=== PATIENT | female | born 1990 | race Hispanic/Latino ===

== ENCOUNTER 2017-10-08 11:51 | Day surgery (SDC) | payer OTHER ==
[~2017-10-08 11:51] MED LIST: Dexamethasone 20 MG/5 ML VIAL ONE; Glycopyrrolate 0.2 MG/ML 5 ML SYRINGE ONE; Ketorolac Tromethamine 30 MG/ML VIAL ONE; Lidocaine 1% PF 5 ML VIAL ONE; Ondansetron HCl/PF 4 MG/2 ML Vial ONE; Propofol 200 MG/20 ML VIAL ONE; Succinylcholine Chloride 20 MG/ML 10 ml SYRINGE FS ONE
[2017-10-08] MEDS ORDERED: Bupivacaine/Epinephrine 0.25% 30 ML VIAL ONE (12:09)
[2017-10-08] MEDS ORDERED: Midazolam HCl 2 mg/2 ml Vial ONE (12:14)
[2017-10-08] MEDS ORDERED: Ondansetron HCl/PF 4 MG/2 ML Vial ONE ×2 (12:14→14:41)
[2017-10-08] MEDS ORDERED: Fentanyl 100 MCG/2 ML VIAL ONE ×2 (12:14→13:45)
[2017-10-08] MEDS ORDERED: cefOXitin 2 GM, Syringe 1 ML in Sterile Water 10 ML SLOW IVP SCH (12:30)
[2017-10-08] MEDS ORDERED: diphenhydrAMINE 50 MG/ML VIAL ONE (13:54)
--- NOTE | 2017-10-08 14:00 | OP ---
PREOPERATIVE DIAGNOSIS: Severe biliary colic. SURGEON: Robin Preciado M.D. PROCEDURE PERFORMED: Laparoscopic cholecystectomy. INDICATIONS: This is a 27-year-old female with 3-day history of severe right upper quadrant pain. S he went to the emergency room yesterday where ultrasound showed gallbladder polyps, sludge, normal li ayad function tests. She continued to hurt and started having vomiting. FINDINGS: There was some inflammation in the lower gallbladder. The cystic duct was not dilated. PROCEDURE IN DETAIL: After informed consent was obtained, the patient was taken to the operating [facility] and given general endotracheal anesthesia. She was placed in the supine position. Her abdomen was prepped and draped in the usual fashion. Local anesthesia infiltrated subcutaneously and deep. A s ubumbilical incision was performed, subcu divided sharply. The fascia grasped and two stay sutures o f 0 Vicryl placed to either side of midline. Midline was incised. Digital palpation revealed no loc al adhesions. A blunt 10-12 mm trocar inserted. Pneumoperitoneum was created to a pressure of 15 mm Hg. A 0-degree laparoscope inserted. Under direct vision, three 5 mm ports placed subcostally. The gallbladder grasped and advanced superiorly. There were adhesions to the gallbladder. These were t aken down utilizing electrocautery as well as blunt and sharp dissection. The peritoneum opened to d issect out the cystic duct and artery as well as critical view. The duct and artery were triply liga viviane with Hemoclips and divided. The gallbladder was removed from its fossa utilizing electrocautery, removed from the abdomen through the umbilical port. Hemostasis was assured. Trocars and retractor s removed. The fascia closed with interrupted 0 Vicryl suture. The skin closed with interrupted 4-0 Rapide. Dermabond applied. The patient tolerated the procedure well and transferred to recovery in good condition. Sponge and needle count verified correct x2.
--- NOTE | 2017-10-08 14:03 | HP ---
CHIEF COMPLAINT: Right upper quadrant abdominal pain. HISTORY OF PRESENT ILLNESS: The patient is a 27-year-old female with a 3-day history of progressive epigastric and right upper quadrant pain radiating to the back, associated with nausea and vomiting. She had a temperature of 100 degrees yesterday. She went to the emergency room in [place] where an ultrasound showed a gallbladder polyp and sludge. PAST MEDICAL HISTORY: Significant for otherwise being healthy. PAST SURGICAL HISTORY: She has had an appendectomy, tonsil and adenoidectomy. MEDICATIONS: None. ALLERGIES: No known drug allergies. SOCIAL HISTORY: She is . No tobacco. Rare alcohol. FAMILY HISTORY: Diabetes. PHYSICAL EXAMINATION: GENERAL: She is afebrile. A well-developed, well-nourished female. She is in pain. HEENT: No jaundice. LUNGS: Clear. HEART: Regular rate and rhythm. ABDOMEN: Soft, tender in the right upper quadrant with a plus/minus Sullivan's sign. No palpable mass es. EXTREMITIES: Unremarkable. LABORATORY AND X-RAY FINDINGS: White count 5.3, hemoglobin and hematocrit 12 and 37, platelet count 153. Electrolytes are fine. Liver function tests normal. Ultrasound shows gallbladder polyp and sl udge. ASSESSMENT: Severe biliary colic. PLAN: Laparoscopic cholecystectomy. CONSENT: I have discussed the planned procedure as well as risk of bleeding, infection, injury to bi le duct, injury to bowel, need to open. She understands and gives informed consent.
[2017-10-08] MEDS ORDERED: HYDROcodone/Acetaminophen 5/325 mg Tablet ONE (14:43)
== END 2017-10-08 15:28 | disposition home or self-care (01) ==
LOC: SDC 11:51
PROVIDERS: ATTEND Surgery
PROC: 0FT44ZZ Resection of Gallbladder, Percutaneous Endoscopic Approach (ICD-10-PCS; principal; 2017-10-08)
DX: K81.1 Chronic cholecystitis (principal); K82.8 Other specified diseases of gallbladder; Z90.49 Acquired absence of other specified parts of digestive tract; Z90.89 Acquired absence of other organs
CPT/HCPCS: 88304; 96374; A4216; J0694; J1100; J1200; J1885; J2001; J2250; J2405; J2704; J3010

== ENCOUNTER 2018-04-07 12:15 | Emergency (ER) | payer OTHER ==
[2018-04-07] MEDS ORDERED: Ketorolac Tromethamine 30 MG/ML VIAL ONE (13:18)
[2018-04-07] MEDS ORDERED: Dexamethasone 10 MG/ML VIAL ONE (13:18)
[2018-04-07 13:22] LABS: Pregnancy Test - Urine (BHCG) Negative (Negative); Pregu Control Background? CLEAR/WHITE (CLR/WHITE); Pregu Control Bar Appear? YES (CONTROL BAR); Specific Gravity 1.007 (1.002-1.036)
[2018-04-07 13:30] LABS: Cocaine Metabolite Screen Not Detected (NotDetected); Medtox Reader # READER 1; Phencyclidine (PCP) Not Detected (NotDetected); THC/Cannabinoid Screen Not Detected (NotDetected)
[2018-04-07 13:31] LABS: Amphetamine Detected (NotDetected); Barbiturates Screen Not Detected (NotDetected); Benzodiazepine Screen Not Detected (NotDetected); Medtox Control Line Valid? VALID (VALID); Methadone Not Detected (NotDetected); Methamphetamine Not Detected (NotDetected); Opiate Screen Not Detected (NotDetected); Oxycodone Screen Not Detected (NotDetected); Tricyclic Screen Not Detected (NotDetected)
--- NOTE | 2018-04-07 13:46 | CT ---
NONCONTRAST ENHANCED CT IMAGES OF CERVICAL SPINE: Date: 04/07/18 HISTORY: Back and shoulder pain and neck pain after injury. FINDINGS: Noncontrast enhanced CT images of cervical spine obtained. The cervical spinal alignment is within normal limits. No evidence of cervical spine fractures, sublu xations, or bony lesions seen. Vertebral body and facets are unremarkable. IMPRESSION: Normal CT cervical spine. POS: [facility]
--- NOTE | 2018-04-07 13:48 | CT ---
CT LUMBAR SPINE WITHOUT CONTRAST: Date: 04/07/18 COMPARISON: None. HISTORY: Low back pain after holding a cart that was rolling in elevator. Pain extends down the right leg. TECHNIQUE: Multiple contiguous axial images were obtained in a CT of the lumbar spine without contrast. Sagittal and coronal reformats were performed. FINDINGS: Vertebral bodies and intervertebral discs demonstrate normal height and alignment without fracture or subluxation. No significant degenerative changes are seen. The patient is status post cholecystectomy. The prevertebral and paraspinal soft tissues are unremark able. IMPRESSION: Normal CT of lumbar spine. POS: [facility]
[2018-04-07] MEDS ORDERED: Acetaminophen/Codeine 30-300mg Tablet ONE (14:08)
== END 2018-04-07 14:40 | disposition home or self-care (01) ==
LOC: ERS 12:15
DX: S33.5XXA Sprain of ligaments of lumbar spine, initial encounter (principal); M54.2 Cervicalgia; Z79.899 Other long term (current) drug therapy; X50.0XXA Overexertion from strenuous movement or load, initial encounter
CPT/HCPCS: 72125; 72131; 80306; 81025; 96372; J1100; J1885

== ENCOUNTER 2018-09-16 14:23 | Outpatient (CLI) | payer OTHER ==
--- NOTE | 2018-09-16 17:28 | MRI ---
CERVICAL SPINE MRI WITHOUT CONTRAST: 09/16/18 HISTORY: Cervical radiculopathy. COMPARISON: 01/20/13. TECHNIQUE: Cervical spine MRI is performed without intravenous gadolinium administration. Multisequential, multi planar imaging is performed. FINDINGS: Appropriate T1 marrow signal intensity of the cervical vertebrae. Cervical spine vertebral body heigh t is maintained. There is no fracture. No significant STIR hyperintensity to suggest vertebral body e bel or ligamentous injury. The visualized brain parenchyma, cervicomedullary junction, cervical cord, and the upper thoracic cor d have a normal size and signal intensity. C2-C3: No significant central canal stenosis. Foramina are patent. C3-C4: No significant central canal stenosis. Neural foramina are patent. C4-C5: No significant central canal stenosis. Neural foramina are patent. C5-C6: No significant posterior disc abnormality. No significant central canal stenosis. Foramina is patent. C6-C7: Minimal right paracentral disc bulge. No significant central canal stenosis. Neural foramina a re patent. C7-T1: No significant central canal stenosis. Neural foramina are patent. IMPRESSION: No significant central canal stenosis or foraminal narrowing. POS: [facility]
== END 2018-09-16 14:24 | disposition home or self-care (01) ==
LOC: MRI 14:23
PROVIDERS: ATTEND Anesthesiology
DX: M54.12 Radiculopathy, cervical region (principal)
CPT/HCPCS: 72141

== ENCOUNTER 2020-10-11 10:49 | Inpatient (IN) | payer OTHER ==
[2020-11-01] MEDS: Lactated Ringer's 1,000 ML IV SCH ×2 (06:10→12:12)
[2020-11-01] MEDS ORDERED: Promethazine HCl 25 MG/ML VIAL IM PRN ×2 (06:15→09:23)
[2020-11-01] MEDS ORDERED: Ondansetron PF 4 MG/2 ML Vial IVP PRN ×3 (06:15→21:15)
[2020-11-01] MEDS ORDERED: Butorphanol Tartrate 1 MG/ML VIAL SLOW IVP PRN (06:15)
[2020-11-01] MEDS ORDERED: HYDROcodone/Acetaminophen 5/325 mg Tablet PO PRN ×3 (06:15→20:58)
[2020-11-01] MEDS ORDERED: Misoprostol 200 MCG TAB PR PRN (06:15)
[2020-11-01] MEDS ORDERED: Acetaminophen 500 MG TAB PO PRN (06:15)
[2020-11-01] MEDS ORDERED: hydrALAZINE 20 MG/ML VIAL SLOW IVP PRN ×2 (06:15→21:00)
[2020-11-01] MEDS ORDERED: Lidocaine 1% (PF) 30 ML VIAL SC PRN (06:15)
[2020-11-01] MEDS ORDERED: Ibuprofen 800 MG TAB PO PRN (06:15)
[2020-11-01] MEDS ORDERED: Diphenoxylate HCl/Atropine Tablet PO PRN ×2 (06:15)
[2020-11-01] MEDS ORDERED: Docusate 100 MG CAP PO PRN (06:15)
[2020-11-01 06:26] VITALS: BMI 34.2
[2020-11-01 06:31] LABS: Hemoglobin 12.3 g/dL (12.0-16.0); Mean Corpuscular HGB CONC 33.9 g/dL (32.0-36.0); Mean Corpuscular Hemoglobin 32.1 pg (27.0-31.0); Mean Corpuscular Volume 94.5 fL (78.0-98.0); Mean Platelet Volume 8.2 fL (7.4-10.4); Platelet Count 173 thou/uL (130-400); RBC Distribution Width 12.3 % (11.5-14.5); Red Blood Cell (RBC) Count 3.84 mill/uL (4.20-5.40); White Blood Cell (WBC) Count 6.3 thou/uL (4.8-10.8)
[2020-11-01 07:10] LABS: HBSAg Index 0.16 S/CO (0-0.99); Hep B Surf Ag Non-Reactive S/CO (NonReactive); Syphilis Antibody Nonreactive (Nonreactive); Syphilis Antibody Index 0.02 S/CO (<1.00 Non-Reactive)
[2020-11-01] MEDS ORDERED: Fentanyl 4 mcg/Bup 0.1% Cadd 100 ML ONE (08:45)
[2020-11-01] MEDS: NS w/ Oxytocin 30 units 500 ML IV PRN ×3 (09:18→18:38)
[2020-11-01] MEDS ORDERED: diphenhydrAMINE 50 MG/ML VIAL IVP PRN (09:23)
[2020-11-01] MEDS ORDERED: Naloxone HCl 0.4 mg/ml Vial IVP PRN ×2 (09:23)
[2020-11-01] MEDS ORDERED: Acetaminophen 325 MG TAB PO PRN (09:23)
[2020-11-01] MEDS ORDERED: ePHEDrine 50 MG/ML VIAL SLOW IVP PRN (09:23)
[2020-11-01] MEDS ORDERED: Lactated Ringer's 500 ML IV PRN (09:23)
[2020-11-01] MEDS ORDERED: Fentanyl 4 mcg/Bupivacaine 0.1% Cassette 100 ML EPIDURAL SCH (09:30)
[2020-11-01] MEDS ORDERED: Communication Order-Pharmacy FS SCH (09:30)
[2020-11-01] MEDS ORDERED: Bupivacaine HCl 0.25%/Epi 0.0005/PF 10 ML VIAL FS ONE (11:23)
[2020-11-01] MEDS ORDERED: Lidocaine 1% (PF) 30 ML VIAL ONE ×2 (15:09→15:10)
[2020-11-01] MEDS ORDERED: NS w/ Oxytocin 30 units 500 ML ONE (15:10)
[2020-11-01] MEDS ORDERED: NS w/ Oxytocin 30 units 500 ML IVPB SCH (21:00)
[2020-11-01] MEDS ORDERED: Bisacodyl 10 MG SUPP PR PRN (21:03)
[2020-11-01] MEDS ORDERED: Milk Of Magnesia 30 ML UDCUP PO PRN (21:04)
[2020-11-01] MEDS ORDERED: Benzocaine-Menthol 82.5 ML CAN TOP PRN (21:05)
[2020-11-01] MEDS ORDERED: Boostrix 0.5 ML (Tdap) VIAL IM ONE (21:15)
[2020-11-01] MEDS: Ibuprofen 800 MG TAB PO SCH (21:43)
[2020-11-01] MEDS: HYDROcodone/Acetaminophen 5/325 mg Tablet PO PRN (22:40)
[2020-11-02 05:16] LABS: Hemoglobin 10.7 g/dL (12.0-16.0); Mean Corpuscular HGB CONC 35.1 g/dL (32.0-36.0); Mean Corpuscular Volume 96.9 fL (78.0-98.0); Mean Platelet Volume 8.4 fL (7.4-10.4); Platelet Count 123 thou/uL (130-400); RBC Distribution Width 12.1 % (11.5-14.5); Red Blood Cell (RBC) Count 3.13 mill/uL (4.20-5.40); White Blood Cell (WBC) Count 7.4 thou/uL (4.8-10.8)
[2020-11-02] MEDS: Ibuprofen 800 MG TAB PO SCH ×2 (05:33→14:36)
[2020-11-02] MEDS: Ferrous Sulfate 325 MG TAB PO SCH ×2 (07:55→15:47)
[2020-11-02] MEDS: Docusate Calcium (SURFAK) 240 MG CAP PO SCH ×2 (08:28→20:08)
[2020-11-02] MEDS: HYDROcodone/Acetaminophen 5/325 mg Tablet PO PRN ×2 (08:28→20:07)
[2020-11-03] MEDS ORDERED: Calcium Carbonate 500 MG ChewTAB PO PRN (00:33)
[2020-11-03] MEDS: Ibuprofen 800 MG TAB PO SCH ×2 (00:35→06:46)
[2020-11-03] MEDS: Ferrous Sulfate 325 MG TAB PO SCH (08:00)
[2020-11-03] MEDS: Docusate Calcium (SURFAK) 240 MG CAP PO SCH (08:42)
[2020-11-03 08:52] VITALS: BP 141/83; TEMP 97.6
== END 2020-11-03 11:55 | disposition home or self-care (01) | DRG 768 ==
LOC: EDSTATUS 15:14 → L&D 11-01 05:54 → 3SW 11-01 19:52
PROVIDERS: ADMIT Obstetrics & Gynecology; ATTEND Obstetrics & Gynecology
PROC: 10E0XZZ Delivery of Products of Conception, External Approach (ICD-10-PCS; principal; 2020-11-01)
PROC: 0UQC7ZZ Repair Cervix, Via Natural or Artificial Opening (ICD-10-PCS; 2020-11-01)
PROC: 0HQ9XZZ Repair Perineum Skin, External Approach (ICD-10-PCS; 2020-11-01)
PROC: 10907ZC Drainage of Amniotic Fluid, Therapeutic from Products of Conception, Via Natural or Artificial Opening (ICD-10-PCS; 2020-11-01)
PROC: 3E033VJ Introduction of Other Hormone into Peripheral Vein, Percutaneous Approach (ICD-10-PCS; 2020-11-01)
DX: O71.3 Obstetric laceration of cervix (principal); Z37.0 Single live birth; D62 Acute posthemorrhagic anemia; Z3A.39 39 weeks gestation of pregnancy; Z86.16 Personal history of COVID-19; O90.81 Anemia of the puerperium; O70.0 First degree perineal laceration during delivery
CPT/HCPCS: 36415; 51702; 85027; 86780; 86850; 86900; 86901; 87340; 87635; J2405; J2590; U0003; U0005

== ENCOUNTER 2020-10-29 09:50 | Outpatient (CLI) | payer OTHER ==
[2020-10-29 20:52] LABS: SARS-CoV-2 PCR by NAA Not Detected (NotDetected)
== END 2020-10-29 09:51 | disposition home or self-care (01) ==
LOC: LABBT 09:50
PROVIDERS: ATTEND Obstetrics & Gynecology
DX: Z01.812 Encounter for preprocedural laboratory examination (principal); Z20.822 Contact with and (suspected) exposure to COVID-19
CPT/HCPCS: 87635; U0003; U0005

== ENCOUNTER 2021-01-08 10:09 | Outpatient (CLI) | payer OTHER | END 2021-01-08 10:10 | disposition home or self-care (01) | LOC: MRI 10:09 | PROVIDERS: ATTEND Anesthesiology | DX: G95.9 Disease of spinal cord, unspecified (principal); M47.814 Spondylosis without myelopathy or radiculopathy, thoracic region | CPT/HCPCS: 72141; 72146; 72148 ==

== ENCOUNTER 2023-12-03 07:26 | Emergency (ER) | payer BC ==
[2023-12-03] MEDS ORDERED: Ondansetron PF 4 MG/2 ML Vial ONE (07:52)
[2023-12-03] MEDS ORDERED: Ketorolac Tromethamine 30 MG (1 mL) VIAL ONE (07:52)
[2023-12-03 07:57] LABS: #Monocytes 0.4 thou/uL (0.11-0.59); #Neutrophils 12.6 thou/uL (1.40-6.50); %Basophils 0.1 % (0.0-1.0); %Lymphocytes 5.9 % (21.0-51.0); %Monocytes 2.7 % (0.0-10.0); Hematocrit 39.2 % (36.0-47.0); Hemoglobin 13.5 g/dL (12.0-16.0); Mean Corpuscular HGB CONC 34.4 g/dL (32.0-36.0); Mean Corpuscular Hemoglobin 33.2 pg (27.0-31.0); Mean Corpuscular Volume 96.3 fl (78.0-98.0); Mean Platelet Volume 11.2 fL (7.4-10.4); Platelet Count 205 10x3/uL (130-400); RBC Distribution Width 11.9 % (11.5-14.5); Red Blood Cell (RBC) Count 4.07 mill/uL (4.20-5.40); White Blood Cell (WBC) Count 13.8 10x3/uL (4.8-10.8)
[2023-12-03 08:00] LABS: Bacteria/HPF 1+ HPF (None Seen); Bilirubin Negative (Negative); Blood, Urine 2+ (Negative); CAUTI Indications for Culture Dysuria,urgency,freq; Clarity Turbid (Clear); Glucose, Urine (Dipstick) Normal (Negative); Ketone, Urine Negative (Negative); Leukocyte 500 Leu/uL (Negative); Nitrite 1+ (Negative); Protein, Urine (Dipstick) Negative (Neg-Trace); RBC/HPF 0-3 HPF (0-3); Specific Gravity, Urine 1.007 (1.002-1.036); Squamous Epithelial 0-3 HPF (0-3); Urobilinogen Normal mg/dL (Less than 2); WBC/HPF Greater than 50 HPF (0-3); pH, Urine 6.5 (5.0-9.0)
[2023-12-03 08:05] LABS: BHCG - Serum Negative (NEGATIVE); Pregs Control Background? CLEAR/WHITE (CLR/WHITE); Pregs Control Bar Appear? YES (CONTROL BAR)
[2023-12-03 08:13] LABS: Urine Culture Reflex Yes Yes
[2023-12-03] MEDS ORDERED: cefTRIAXone (ROCEPHIN) 1 GM VIAL ONE (08:21)
[2023-12-03] MEDS ORDERED: Sodium Chloride 0.9% 100 ML ONE (08:21)
[2023-12-03] MEDS ORDERED: Morphine 4 MG/ML VIAL ONE (08:31)
[2023-12-03 08:43] LABS: ALT (SGPT) 15 U/L (8-55); AST (SGOT) 17 U/L (5-34); Albumin 4.8 g/dL (3.5-5.0); Alkaline Phosphatase 58 U/L (40-110); Anion Gap 12 mmol/L (10-20); BUN (Urea Nitrogen) 17 mg/dL (7.0-18.7); Bilirubin, Total 0.4 mg/dL (0.2-1.2); Calc. Creatinine Clearance 0 mL/min (70-130); Calcium 11.7 mg/dL (7.8-10.44); Carbon Dioxide 23 mmol/L (22-29); Chloride 107 mmol/L (98-107); Estimated GFR 118; Globulin 2.6 g/dL (2.4-3.5); Glucose 107 mg/dL (70-105); Potassium 3.8 mmol/L (3.5-5.1); Protein, Total 7.4 g/dL (6.0-8.3); Sodium 138 mmol/L (136-145)
== END 2023-12-03 10:47 | disposition home or self-care (01) ==
LOC: ERS 07:26
DX: N39.0 Urinary tract infection, site not specified (principal); N20.0 Calculus of kidney
CPT/HCPCS: 74176; 76856; 80053; 81001; 84703; 85025; 87086; 93976; 96365; 96375; J0696; J1885; J2270; J2405; J3490